=== PATIENT | female | born 1970 | race Two or more races ===

== ENCOUNTER → 2022-10-07 | Outpatient (CLI) | payer MEDICARE, MEDICAID ==
[~2022-10-07] MED LIST: ALBUTEROL SULF 2.5 MG/0.5ML(0.5%) NEB SOLN ONE
== END | disposition home or self-care (01) ==
LOC: EDSTATUS 09:24 → RT 09:25
PROVIDERS: ATTEND Internal Medicine Pulmonary Disease
DX: R06.02 Shortness of breath (principal); J45.40 Moderate persistent asthma, uncomplicated; R06.09 Other forms of dyspnea; Z87.891 Personal history of nicotine dependence
CPT/HCPCS: 94060; 94727; 94729

== ENCOUNTER 2022-11-27 13:29 | Day surgery (SDC) | payer MEDICARE, MEDICAID ==
[2022-11-25 11:40] LABS: Basophils # (auto) 0.1 10 ^3/uL (0-0.2); Basophils % (auto) 0.7 % (0.0-2.0); Eosinophils # (auto) 0.4 10 ^3/uL (0-0.8); Eosinophils % (auto) 4.9 % (0.0-7.0); Hematocrit 38.7 % (36.0-46.0); Hemoglobin 12.6 g/dL (12.2-16.2); Lymphocytes # (auto) 1.3 10 ^3/uL (0.4-5.4); Lymphocytes % (auto) 16.1 % (10.0-50.0); Mean Corpuscular Hemoglobin 31.6 pg (28.0-32.0); Mean Corpuscular Hgb Conc. 32.6 g/dL (32.0-36.0); Mean Corpuscular Volume 96.9 fL (80.0-100.0); Monocytes # (auto) 0.7 10 ^3/uL (0-1.3); Monocytes % (auto) 8.7 % (0.0-12.0); Neutrophils # (auto) 5.8 10 ^3/uL (1.6-8.6); Neutrophils % (auto) 69.6 % (37.0-80.0); Red Cell Distribution Width 13.6 % (11.8-14.3); White Blood Cell 8.4 10^3/uL (4.4-10.8)
[2022-11-25 11:54] LABS: INR 0.99 (0.9-1.15); Partial Thromboplastin Time 30.8 SEC (24.5-34.5)
[2022-11-25 12:33] LABS: BUN/Creatinine Ratio 11.6 (10.0-20.0); Calcium 7.9 mg/dL (8.5-10.1)
[2022-11-25 12:51] LABS: Bilirubin, Total 0.2 mg/dL (0.2-1.0); Total Protein 6.1 g/dL (6.4-8.2)
[~2022-11-27] VITALS: Ht 172.7 cm; Wt 79.4 kg
[~2022-11-27 13:29] MED LIST changes: +ADAL1INJ SC; +ALBUAER3 IN; -ALBUTEROL SULF 2.5 MG/0.5ML(0.5%) NEB SOLN ONE; +AMIT10TA12 PO; +DULO60CA41 PO; +FERR-7 PO; +FLUT100I IN; +FOLI-119 PO; +HYDR-4188 OR; +IPRA0.00 IN; +OMEP20TA PO; +PRE5T PO; +PREG150C PO
[2022-11-27] MEDS ORDERED: PROPOFOL 10 MG/ML 20 ML IV ONE ×2 (15:07→15:23)
[2022-11-27] MEDS ORDERED: LIDOCAINE 2% (LOCAL ANESTH.) PF 5ml SDV ONE (15:07)
[2022-11-27 16:05] VITALS: BP 118/68
== END 2022-11-27 16:16 | disposition home or self-care (01) ==
LOC: GI 13:29
PROVIDERS: ATTEND Internal Medicine Gastroenterology
DX: K63.3 Ulcer of intestine (principal); K57.30 Diverticulosis of large intestine without perforation or abscess without bleeding; K64.1 Second degree hemorrhoids; K52.9 Noninfective gastroenteritis and colitis, unspecified; Z98.84 Bariatric surgery status; Z98.890 Other specified postprocedural states
CPT/HCPCS: 36415; 45378; 80053; 84702; 85025; 85610; 85730; J2001; J2704; J7030

== ENCOUNTER → 2023-03-26 | Day surgery (SDC) | payer MEDICARE, MEDICAID ==
[2023-03-23 09:01] LABS: Basophils # (auto) 0.1 10 ^3/uL (0-0.2); Basophils % (auto) 0.9 % (0.0-2.0); Eosinophils # (auto) 0.7 10 ^3/uL (0-0.8); Eosinophils % (auto) 7.4 % (0.0-7.0); Hematocrit 42.4 % (36.0-46.0); Lymphocytes # (auto) 2.3 10 ^3/uL (0.4-5.4); Lymphocytes % (auto) 23.5 % (10.0-50.0); Monocytes # (auto) 0.7 10 ^3/uL (0-1.3); Neutrophils % (auto) 61.2 % (37.0-80.0); Red Blood Cells 4.38 10^6/uL (4.0-5.20); Red Cell Distribution Width 13.6 % (11.8-14.3); White Blood Cell 9.8 10^3/uL (4.4-10.8)
[2023-03-23 09:18] LABS: Prothrombin Time 10.5 sec (9.3-11.8)
[2023-03-23 09:56] LABS: Alanine Aminotransferase 20 U/L (7-40); Albumin 4.4 g/dL (3.2-4.8); Alkaline Phosphatase 111 U/L (46-116); Anion Gap 6 (5-15); Aspartate Aminotransferase 24 U/L (13-40); BUN/Creatinine Ratio 15.5 (10.0-20.0); Blood Urea Nitrogen 11 mg/dL (9-23); Calcium 9.4 mg/dL (8.5-10.1); Carbon Dioxide 31 mmol/L (20-30); Chloride 104 mmol/L (98-107); Glucose 92 mg/dL (74-106); Potassium 4.4 mmol/L (3.5-5.1); Sodium 141 mmol/L (136-145)
[2023-03-23 09:57] LABS: Bilirubin, Total 0.6 mg/dL (0.2-1.0); Total Protein 7.2 g/dL (5.7-8.2)
[~2023-03-26] VITALS: Ht 172.7 cm; Wt 80.3 kg
[~2023-03-26] MED LIST changes: +LIDOCAINE VISCOUS 2% 15ML UD ONE; +SIMETHICONE 40 MG/0.6 ML ORAL DROP ONE; +SODIUM CHLORIDE LOCK 10 ML ONE; +diphenhdrAMINE HCL 50 MG/1 ML VL ONE
[2023-03-26 15:01] VITALS: PULSE 87; RESP 14; O2SAT 97
[2023-03-26] MEDS: MIDAZOLAM HCL 5 MG/ML-1ML VIAL ONE ×2 (15:06→15:09)
[2023-03-26] MEDS: fentaNYL CITRATE 100 MCG/2 ML VL ONE ×2 (15:06→15:09)
[2023-03-26 15:23] VITALS: RESP 16; TEMP 97.8; O2SAT 94
[2023-03-26 15:48] VITALS: BP 111/62; PULSE 63; RESP 15; O2SAT 95
== END | disposition home or self-care (01) ==
LOC: GI 13:43
PROVIDERS: ATTEND Internal Medicine Gastroenterology
DX: K21.9 Gastro-esophageal reflux disease without esophagitis (principal); K25.9 Gastric ulcer, unspecified as acute or chronic, without hemorrhage or perforation; K29.50 Unspecified chronic gastritis without bleeding; K22.89 Other specified disease of esophagus
CPT/HCPCS: 36415; 43239; 80053; 85025; 85610; 85730; J1200; J2250; J3010; J7030

== ENCOUNTER 2023-09-03 05:48 | Day surgery (SDC) | payer MEDICARE, MEDICAID ==
[2023-08-31 14:41] LABS: Urine Bacteria None Seen /hpf (None Seen)
[2023-08-31 14:50] LABS: Basophils # (auto) 0 10 ^3/uL (0-0.2); Basophils % (auto) 0.6 % (0.0-2.0); Eosinophils # (auto) 0.3 10 ^3/uL (0-0.8); Eosinophils % (auto) 3.4 % (0.0-7.0); Hematocrit 44.2 % (36.0-46.0); Hemoglobin 14.5 g/dL (12.2-16.2); Lymphocytes # (auto) 1.2 10 ^3/uL (0.4-5.4); Lymphocytes % (auto) 16.5 % (10.0-50.0); Mean Corpuscular Hemoglobin 31.6 pg (28.0-32.0); Mean Corpuscular Hgb Conc. 32.9 g/dL (32.0-36.0); Mean Corpuscular Volume 96.3 fL (80.0-100.0); Monocytes # (auto) 0.7 10 ^3/uL (0-1.3); Neutrophils # (auto) 5.2 10 ^3/uL (1.6-8.6); Neutrophils % (auto) 70.5 % (37.0-80.0); Red Blood Cells 4.59 10^6/uL (4.0-5.20); Red Cell Distribution Width 13.5 % (11.8-14.3); White Blood Cell 7.3 10^3/uL (4.4-10.8)
[2023-08-31 14:57] LABS: INR 1.02 (0.9-1.15); Partial Thromboplastin Time 32.8 SEC (24.5-34.5); Prothrombin Time 10.7 sec (9.3-11.8)
[2023-08-31 15:04] LABS: Urine Blood 1+ /uL (Negative); Urine Budding Yeast OCCASIONAL /hpf (None Seen); Urine Clarity Clear (Clear); Urine Color Yellow (Yellow); Urine Mucus FEW (None Seen); Urine Protein, UAD TRACE (Negative); Urine Specific Gravity 1.016 (1.001-1.035); Urine Urobilinogen Normal (Negative); Urine WBC 2 /hpf (0 - 5)
[2023-08-31 15:35] LABS: Alanine Aminotransferase 19 U/L (7-40); Alkaline Phosphatase 90 U/L (46-116); Calcium 9.2 mg/dL (8.5-10.1); Carbon Dioxide 33 mmol/L (20-30); Chloride 106 mmol/L (98-107)
[2023-08-31 15:36] LABS: Albumin 4.2 g/dL (3.2-4.8); Anion Gap 4 (5-15); Aspartate Aminotransferase 28 U/L (13-40); BUN/Creatinine Ratio 7.1 (10.0-20.0); Bilirubin, Total 0.3 mg/dL (0.2-1.0); Blood Urea Nitrogen 6 mg/dL (9-23); Glucose 138 mg/dL (74-106); Potassium 3.9 mmol/L (3.5-5.1); Sodium 143 mmol/L (136-145); Total Protein 6.6 g/dL (5.7-8.2)
[~2023-09-03] VITALS: Ht 172.7 cm; Wt 86.2 kg
[~2023-09-03 05:48] MED LIST changes: -ADAL1INJ SC; -HYDR-4188 OR; +HYDR-4491 OR; -LIDOCAINE VISCOUS 2% 15ML UD ONE; -SIMETHICONE 40 MG/0.6 ML ORAL DROP ONE; -SODIUM CHLORIDE LOCK 10 ML ONE; -diphenhdrAMINE HCL 50 MG/1 ML VL ONE
[2023-09-03] MEDS ORDERED: fentaNYL CITRATE 100 MCG/2 ML VL ONE (07:18)
[2023-09-03] MEDS ORDERED: MIDAZOLAM HCL 2MG/2ML 2ml VIAL (1mg/ml) ONE (07:19)
[2023-09-03] MEDS ORDERED: MEPERIDINE HCL (50 MG/ML) 1 ML VIAL ONE (07:19)
[2023-09-03] MEDS ORDERED: DexAMETHasone SOD PHOS 10MG/1ML VIAL INJ ONE (07:22)
[2023-09-03] MEDS ORDERED: PROPOFOL 10 MG/ML 20 ML IV ONE (07:22)
[2023-09-03] MEDS ORDERED: ceFAZolin 2 GM/D5W50ml 0 ML IV ONE (07:28)
[2023-09-03] MEDS ORDERED: CLINDAMYCIN 600MG IV 50 ML IV ONE (07:29)
[2023-09-03] MEDS ORDERED: LIDOCAINE 2% JELLY 11ml (GLYDO) ONE (07:44)
[2023-09-03] MEDS: LIDOCAINE 1% HCL (LOCAL ANESTH.) INJ 20ML MDV ONE (07:54)
[2023-09-03] MEDS: BUPIVACAINE 0.5% P/F INJ 10 ML VIAL ONE (07:54)
[2023-09-03] MEDS ORDERED: MORPHINE SULFATE 4 MG/ML SYR/VIAL IV PRN (08:15)
[2023-09-03] MEDS ORDERED: ePHEDrine SULFATE 50 MG/ML AMP IV PRN (08:15)
[2023-09-03] MEDS ORDERED: ONDANSETRON HCL 4 MG/2 ML VIAL IV ONE (08:15)
[2023-09-03] MEDS ORDERED: HYDROmorphone HCL 2 MG/ML VL/or syr IV PRN (08:15)
[2023-09-03] MEDS ORDERED: MIDAZOLAM HCL 2MG/2ML 2ml VIAL (1mg/ml) IV PRN (08:15)
[2023-09-03] MEDS ORDERED: LABETALOL HCL 5 MG/ML 4ML SYRINGE IV PRN (08:15)
[2023-09-03] MEDS ORDERED: HYDR-4902 PO (08:33)
[2023-09-03] MEDS ORDERED: CLIN1CAP70 PO (08:33)
[2023-09-03 08:38] VITALS: TEMP 98.1; O2SAT 100
[2023-09-03 09:35] VITALS: BP 115/66; PULSE 61; RESP 14; O2SAT 97
== END 2023-09-03 09:40 | disposition home or self-care (01) ==
LOC: SUR 05:48
PROVIDERS: ATTEND Student in an Organized Health Care Education/Training Program
DX: M20.42 Other hammer toe(s) (acquired), left foot (principal); M77.42 Metatarsalgia, left foot; G62.9 Polyneuropathy, unspecified; J45.909 Unspecified asthma, uncomplicated; I10 Essential (primary) hypertension; F41.9 Anxiety disorder, unspecified; F32.9 Major depressive disorder, single episode, unspecified; K21.9 Gastro-esophageal reflux disease without esophagitis; E66.01 Morbid (severe) obesity due to excess calories; Z88.2 Allergy status to sulfonamides; Z88.0 Allergy status to penicillin; Z88.8 Allergy status to other drugs, medicaments and biological substances; Z96.653 Presence of artificial knee joint, bilateral; Z86.19 Personal history of other infectious and parasitic diseases; Z98.890 Other specified postprocedural states; Z79.899 Other long term (current) drug therapy; Z98.84 Bariatric surgery status; Z68.30 Body mass index [BMI] 30.0-30.9, adult; Z79.01 Long term (current) use of anticoagulants
CPT/HCPCS: 28285; 28308; 36415; 73620; 80053; 81001; 85025; 85610; 85730; J1100; J2001; J2175; J2250; J2704; J3010; J3490; 76000

== ENCOUNTER 2024-10-30 09:56 | Inpatient (IN) | payer MEDICARE, MEDICAID ==
[2024-10-27 06:49] LABS: Urine Bacteria FEW /hpf (None Seen); Urine Blood 2+ /uL (Negative); Urine Clarity Clear (Clear); Urine Color Colorless (Yellow); Urine Protein, UAD Negative (Negative); Urine Specific Gravity 1.003 (1.001-1.035); Urine Squamous Epithelial Cell FEW /hpf (<5); Urine Urobilinogen Normal (Negative); Urine WBC 1 /HPF (0-5)
[2024-10-27 06:51] LABS: Basophils # (auto) 0 10 ^3/uL (0-0.2); Basophils % (auto) 0.6 % (0.0-2.0); Eosinophils # (auto) 0.7 10 ^3/uL (0-0.8); Eosinophils % (auto) 8.8 % (0.0-7.0); Hematocrit 38.6 % (36.0-46.0); Hemoglobin 12.9 g/dL (12.2-16.2); Lymphocytes % (auto) 25.6 % (10.0-50.0); Mean Corpuscular Hemoglobin 31.1 pg (28.0-32.0); Mean Corpuscular Hgb Conc. 33.5 g/dL (32.0-36.0); Mean Corpuscular Volume 92.9 fL (80.0-100.0); Monocytes # (auto) 0.7 10 ^3/uL (0-1.3); Monocytes % (auto) 8.8 % (0.0-12.0); Neutrophils # (auto) 4.5 10 ^3/uL (1.6-8.6); Neutrophils % (auto) 56.2 % (37.0-80.0); Nucleated Red Blood Cells % 0.1 %; Platelet Count (auto) 179 10^3/uL (140-450); Red Blood Cells 4.16 10^6/uL (4.0-5.20)
[2024-10-27 07:05] LABS: INR 0.95 (0.9-1.15); Partial Thromboplastin Time 29.3 SEC (24.5-34.5); Prothrombin Time 10.1 sec (9.3-11.8)
[2024-10-27 07:36] LABS: Alanine Aminotransferase 16 U/L (7-40); Alkaline Phosphatase 104 U/L (46-116); Anion Gap 5 (5-15); Aspartate Aminotransferase 20 U/L (13-40); BUN/Creatinine Ratio 12.5 (10.0-20.0); Bilirubin, Total 0.4 mg/dL (0.2-1.0); Calcium 9.5 mg/dL (8.7-10.4); Glucose 74 mg/dL (74-106); Potassium 3.7 mmol/L (3.5-5.1); Sodium 145 mmol/L (136-145); Total Protein 6.4 g/dL (5.7-8.2)
[2024-10-27 07:38] LABS: Blood Urea Nitrogen 9 mg/dL (9-23); Carbon Dioxide 32 mmol/L (20-31); Chloride 108 mmol/L (98-107)
[~2024-10-30] VITALS: Ht 172.7 cm; Wt 71.2 kg
[~2024-10-30 09:56] MED LIST changes: +HYDR-4902 PO
[2024-10-30] MEDS ORDERED: GLYCOPYRROLATE 0.2 MG/ML 1ML VIAL ONE (10:35)
[2024-10-30] MEDS ORDERED: KETOROLAC TROMETH 30 MG/ML 1ML VIAL ONE ×2 (10:35→11:37)
[2024-10-30] MEDS ORDERED: PROPOFOL 10 MG/ML 20 ML IV ONE ×3 (10:35→14:05)
[2024-10-30] MEDS ORDERED: DexAMETHasone SOD PHOS 10MG/1ML VIAL INJ ONE (10:35)
[2024-10-30] MEDS ORDERED: ONDANSETRON HCL 4 MG/2 ML VIAL ONE (10:35)
[2024-10-30] MEDS ORDERED: LIDOCAINE 1% INJ PF 5ML AMP ONE (10:35)
[2024-10-30] MEDS ORDERED: ACETAMINOPHEN IV 100 ML IV ONE (10:46)
[2024-10-30] MEDS ORDERED: ceFAZolin 2 GM/D5W50ml 50 ML IV ONE (10:46)
[2024-10-30] MEDS ORDERED: CELECOXIB 100 MG CAP ONE (11:02)
[2024-10-30] MEDS ORDERED: PREGABALIN CAPSULE 75 MG CAP ONE (11:03)
[2024-10-30] MEDS ORDERED: TRANEXAMIC ACID 20 ML ONE (11:36)
[2024-10-30] MEDS ORDERED: BUPIVACAINE HCL 50 ML ONE (11:36)
[2024-10-30] MEDS ORDERED: VANCOMYCIN HCL 1000 MG VL ONE (11:37)
[2024-10-30] MEDS ORDERED: ALBUTEROL SULF HFA 90MCG INH 200DOSE IN SCH (11:45)
[2024-10-30] MEDS ORDERED: ceFAZolin 1GM/50ML 50 ML IV SCH (11:45)
[2024-10-30] MEDS ORDERED: ONDANSETRON HCL 4 MG/2 ML VIAL IV PRN ×2 (11:45→14:45)
[2024-10-30] MEDS ORDERED: NITROGLYCERIN 0.4 MG SL TAB SL PRN (11:45)
[2024-10-30] MEDS ORDERED: HYDROmorphone HCL 2 MG/ML VL/or syr IV PRN ×3 (11:45→15:45)
[2024-10-30] MEDS ORDERED: MORPHINE SULFATE INJ 2 MG/ml SYRG IV PRN (11:45)
[2024-10-30] MEDS: CELECOXIB 100 MG CAP PO ONE (12:15)
[2024-10-30] MEDS: ACETAMINOPHEN IV 1000 MG/100ML (10MG/ML) IV ONE (12:15)
[2024-10-30] MEDS: PREGABALIN CAPSULE 75 MG CAP PO ONE (12:15)
[2024-10-30] MEDS ORDERED: ePHEDrine SULFATE 50 MG/ML AMP ONE (12:59)
[2024-10-30] MEDS ORDERED: MORPHINE SULF PF 5 MG/10 ML VIAL ONE (13:06)
[2024-10-30 14:32] VITALS: PULSE 75; RESP 24; O2SAT 100
[2024-10-30] MEDS ORDERED: hydrALAZINE HCL 20 MG/ML VL IV PRN (14:45)
[2024-10-30] MEDS ORDERED: NALOXONE HCL 0.4 MG/ML VIAL IV PRN (14:45)
[2024-10-30] MEDS ORDERED: FLUMAZENIL 0.1 MG/ML INJ 10ML MDV IV PRN (14:45)
[2024-10-30] MEDS ORDERED: ePHEDrine SULFATE 50 MG/ML AMP IV PRN (14:45)
[2024-10-30] MEDS ORDERED: oxyCODONE HCL 5MG TAB PO PRN (14:45)
[2024-10-30] MEDS ORDERED: fentaNYL CITRATE 100 MCG/2 ML VL IV PRN (14:45)
--- NOTE | 2024-10-30 15:25 | DVHOP2 ---
Operative Report - 2 Report Details Date: 10/30/24 Preop Diagnosis: R hip osteoarthritis Postop Diagnosis: Same Surgeon: Coleman Diaz MD [employer] Wel[employer] Operator: Thierno Hernández Anesthesiologist: ALTAF Sesay Anesthesia: Regional Implant: Yoel Consent: The patient was informed of the risks and benefits of the procedure. These include but are not limited to complications of anesthesia, postoperative infection, incomplete relief of symptoms, recurrence of symptoms, damage to blood vessels, nerves and tendons, deep venous thrombosis, pulmonary embolism and possible need for repeat surgery in the future. Estimated Blood Loss: 250ml Name of Procedure Performed Right Total Hip Arthroplasty Procedure Details Procedure Details: The patient was brought to the operating room and placed in the lateral decubitus position. After adequate induction of anesthesia, the right hip was prepped and draped in the usual sterile fashion. A minimally invasive posterior approach was utilized. A skin incision was made over the posterior aspect of the right hip. Dissection was carried down through the subcutaneous tissue, and the fascia marie was incised in line with the skin incision. The short external rotators were identified, tagged, and released to expose the hip joint capsule. The hip capsule was incised, and the hip was dislocated posteriorly. The femoral head was resected using a power saw. Attention was then turned to the acetabulum, which was reamed sequentially to accommodate a size 52 Yoel [employer] G7 dual mobility cup. The cup was impacted into place with appropriate version and inclination, and screws were used for additional fixation as needed. Attention was then turned to the femur. The femoral canal was prepared with sequential broaching, and a size 12.5 standard stem was selected and impacted into the femoral canal. A +3.5 head was placed onto the stem. The hip was reduced, and stability was assessed through a full range of motion. Excellent stability was confirmed with no impingement or dislocation. The wound was irrigated with copious amounts of normal saline. The short external rotators and capsule were repaired. The fascia marie was closed with interrupted sutures. The subcutaneous tissue was closed with absorbable sutures, and the skin was closed with maggy. A sterile dressing was applied, and the patient was transferred to the recovery room in stable condition. Condition Stable Disposition Home with Health Services COLEMAN DIAZ DO Oct 30, 2024 15:25
[2024-10-30] MEDS ORDERED: MORPHINE SULFATE 4 MG/ML SYR/VIAL IV PRN (15:30)
[2024-10-30] MEDS ORDERED: PANTOPRAZOLE 40 MG/10 ML VIAL INJ IV ONE (15:38)
--- NOTE | 2024-10-30 15:55 | DVH ---
Indication: sp Right ANATOLY Technique: Single-view pelvis Comparison: None FINDINGS/IMPRESSION: Total right hip arthroplasty in anatomic alignment with postop changes including surrounding soft tis migue emphysema, edema. Mild degenerate changes left hip.
[2024-10-30] MEDS: PANTOPRAZOLE 40 MG TAB PO SCH (15:56)
[2024-10-30 17:00] VITALS: BP 110/65; PULSE 92; RESP 18; TEMP 98.3; O2SAT 97
[2024-10-30 17:27] VITALS: PULSE 92; RESP 18; O2SAT 97
[2024-10-30] MEDS: SODIUM CHLOR 0.9% PF (SALINE LOCK) 10ML VIAL/SYR IV SCH (17:40)
[2024-10-30] MEDS: LACTATED RINGER'S 1,000 ML IV SCH (17:40)
[2024-10-30 20:07] VITALS: BP 110/65; PULSE 83; RESP 18; O2SAT 93
[2024-10-30] MEDS ORDERED: ALBUTEROL SULF 2.5 MG/0.5ML(0.5%) NEB SOLN NEB PRN (20:15)
[2024-10-30 21:00] VITALS: BP 97/69; PULSE 74; RESP 18; TEMP 98.4; O2SAT 94
[2024-10-30] MEDS: DOCUSATE SOD 100 MG CAP PO SCH (21:44)
[2024-10-30] MEDS: DULoxetine HCL 30 MG CAP PO SCH (21:44)
[2024-10-30] MEDS: AMITRIPTYLINE HCL 10 MG TAB PO SCH (21:45)
[2024-10-30] MEDS: PREGABALIN CAPSULE 75 MG CAP PO SCH (21:45)
[2024-10-30] MEDS: oxyCODONE ER 10 MG TAB PO SCH (21:47)
[2024-10-30] MEDS ORDERED: PATIENTS OWN MEDICATION (Duloxetine Hcl (Cymbalta) 60 MG) PO SCH (22:00)
[2024-10-30] MEDS ORDERED: PREGABALIN 150 MG PO SCH (22:00)
[2024-10-31] VITALS (9 sets, daily range): BP systolic 97–118; BP diastolic 58–73; PULSE 68–84; RESP 16–18; TEMP 96.8–98.7; O2SAT 94–100
[2024-10-31] MEDS: OXYCODONE W/ ACETAMINOPHEN 5/325MG TABLET PO PRN (02:45)
[2024-10-31 06:44] LABS: Hematocrit 36.5 % (36.0-46.0); Hemoglobin 12.2 g/dL (12.2-16.2)
[2024-10-31 06:52] LABS: Alanine Aminotransferase 35 U/L (7-40); Alkaline Phosphatase 94 U/L (46-116); Anion Gap 9 (5-15); BUN/Creatinine Ratio 14.3 (10.0-20.0); Calcium 9.2 mg/dL (8.7-10.4); Carbon Dioxide 28 mmol/L (20-31); Chloride 105 mmol/L (98-107); Glucose 101 mg/dL (74-106); Potassium 4.5 mmol/L (3.5-5.1); Sodium 142 mmol/L (136-145); Total Protein 6.1 g/dL (5.7-8.2)
[2024-10-31 06:53] LABS: Albumin 3.7 g/dL (3.2-4.8); Bilirubin, Total 0.4 mg/dL (0.2-1.0)
[2024-10-31 07:02] LABS: Blood Urea Nitrogen 9 mg/dL (9-23)
[2024-10-31 07:31] LABS: Aspartate Aminotransferase 45 U/L (13-40)
--- NOTE | 2024-10-31 08:09 | DVHPN2 ---
Progress Note Date Seen: Oct 31, 2024 Medical Necessity Reason Pt with a Central, PICC or Fol: No Subjective Patient reports: No new complaints Objective vital signs Vital Sign Date Time Temp Pulse Resp B/P (MAP) Pulse Ox O2 Delivery O2 Flow Rate FiO2 10/31/24 06:26 97 Room Air 0.0 10/31/24 06:26 21 10/31/24 05:00 98.0 74 18 109/73 (85) 98.0 Total Intake and Output 10/30/24 10/30/24 10/31/24 15:00 23:00 07:00 Intake Total 100 ml 900 ml Output Total 1000 ml Balance 100 ml -100 ml medications Current Medications Medications Dose Ordered Sig/Libertad Route Start Time Stop Time Status Last Admin Dose Admin Amitriptyline HCl 10 mg HS PO 10/30/24 22:00 10/30/24 21:45 10 MG Patient Own Medication 60 mg BID PO 10/30/24 22:00 Cancel Patient Own Medication 325 mg DAILY PO 10/31/24 10:00 UNV Patient Own Medication 1 mg DAILY PO 10/31/24 10:00 UNV Patient Own Medication 20 mg DAILY PO 10/31/24 10:00 UNV Patient Own Medication 150 mg BID PO 10/30/24 22:00 UNV Cefepime HCl 50 ml @ 12.5 mls/hr DAILY IV 10/31/24 10:00 Future Hold Lactated Ringer's 1,000 ml @ 100 mls/hr Q10H IV 10/30/24 11:45 Sodium Chloride 10 ml Q8HR IV 10/30/24 14:00 10/31/24 05:33 10 ML Cefazolin Sodium 50 ml @ 50 mls/hr Q6H IV 10/30/24 11:45 10/31/24 00:44 Cancel Oxycodone/ Acetaminophen 1 tab Q4HP PRN PO 10/30/24 11:45 10/31/24 02:45 1 TAB Oxycodone HCl 10 mg Q12HR PO 10/30/24 22:00 10/30/24 21:47 10 MG Ondansetron HCl 4 mg Q6HP PRN IV 10/30/24 11:45 Docusate Sodium 100 mg Q12HR PO 10/30/24 22:00 10/30/24 21:44 100 MG Enoxaparin Sodium 40 mg DAILY SC 10/31/24 10:00 Nitroglycerin 0.4 mg Q5MINP PRN SL 10/30/24 11:45 Morphine Sulfate 2 mg Q30M PRN IV 10/30/24 11:45 UNV Oxycodone HCl 10 mg ONCE PRN PO 10/30/24 14:45 Duloxetine HCl 60 mg BID PO 10/30/24 22:00 10/30/24 21:44 60 MG Pregabalin 150 mg BID PO 10/30/24 22:00 10/30/24 21:45 150 MG Ferrous Sulfate 325 mg DAILY PO 10/31/24 10:00 Folic Acid 1 mg DAILY PO 10/31/24 10:00 Pantoprazole Sodium 40 mg DAILY PO 10/31/24 10:00 10/30/24 15:56 40 MG Morphine Sulfate 2 mg Q30M PRN IV 10/30/24 15:30 Hydromorphone HCl 1 mg Q2HP PRN IV 10/30/24 15:45 Albuterol 2.5 mg Q4HPRN PRN NEB 10/30/24 20:15 Examination: GENERAL:Normal, MSK:Abnormal laboratory and microbiology Laboratory Tests 10/31/24 05:04 10/27/24 06:34 Test 10/31/24 05:04 Range/Units Serum Glucose 101 74-106 mg/dL Problem List/Assessment/Plan Problem List/Assessment/Plan 54 year old female who is s/p right ANATOLY POD 1 1. WBAT with walker 2. Physical therapy 3. posterior hip precautions discussed 4. DVT ppx 5. pain control 6. d/c greenberg cath today Plan discussed with: Patient Date of Service: Oct 31, 2024 Billing Provider: FELISHA PONCE MD Common Visit Codes: NOT BILLABLE LUIZ HERNANDEZ NP Oct 31, 2024 08:09
[2024-10-31] MEDS: FOLIC ACID 1 MG TAB PO SCH (08:25)
[2024-10-31] MEDS: FERROUS SULFATE 325mg EC TAB PO SCH (08:26)
[2024-10-31] MEDS: ENOXAPARIN SOD 40 MG/0.4 ML SYRINGE SC SCH (08:32)
--- NOTE | 2024-10-31 09:06 | ECG ---
[facility] Test Date: 2024-10-30 Test Time: 15:20:42 Pat Name: DARCI BURR Department: Room: 0212 B Gender: F Frontload Driver: FARHANA : 1970 Requested By: CATY BUSCH Order Number: [id number] Reading MD: Taran Herrera Measurements Intervals [place] Rate: 63 P: 39 WI: 164 QRS: 26 QRSD: 84 T: 55 QT: 422 QTc: 431 Interpretive Statements Normal sinus rhythm Cannot rule out Anterior infarct , age undetermined Electronically Signed On 11-01-2024 20:21:25 PDT by Taran Herrera Please click the below link to view image of tracing.
[2024-10-31] MEDS ORDERED: PATIENTS OWN MEDICATION (Ferrous Sulfate (Iron) 325 MG) PO SCH (10:00)
[2024-10-31] MEDS ORDERED: PATIENTS OWN MEDICATION (Omeprazole (Gnp Omeprazole) 20 MG) PO SCH (10:00)
[2024-10-31] MEDS ORDERED: CEFEPIME 1GM/ 50ML 50 ML IV SCH (10:00)
[2024-10-31] MEDS ORDERED: PATIENTS OWN MEDICATION (Folic Acid 1 MG) PO SCH (10:00)
[2024-11-01] VITALS (7 sets, daily range): BP systolic 102–123; BP diastolic 64–74; PULSE 74–93; RESP 18–20; TEMP 97.5–99.4; O2SAT 95–99
[2024-11-01 07:34] LABS: Hematocrit 35.4 % (36.0-46.0); Hemoglobin 11.9 g/dL (12.2-16.2)
--- NOTE | 2024-11-01 08:03 | DVHDS2 ---
Discharge Summary Date of Admission Oct 30, 2024 at 11:32 Date of Discharge: Nov 01, 2024 Wounds: If the wound is draining please change the gauze pad on the wound until it stops. If drainage persists past 10 days please notify our office. If there is a sticky gel dressing over your wound, you may leave this in place for as long as it is clean and dry. If it becomes loose or causes skin irritation, it is OK to remove it and place clean gauze over your wound. 1. You might notice some bruising around the surgical site, this is normal. 2. Check your temperature on a daily basis. Please note that a low-grade temp below 101 is not uncommon after surgery especially during the first 3 days. Notify the office if your temperature spikes above 101.5 after the 3rd post- operative date. 3. Many patients experience significant swelling in the thigh, this may extend below the knee and sometimes to the ankle. Swelling increases during the first week and subsides during the following week. 4. Provided you have been on a blood thinner since surgery and have been up and about at least three times per day, the risk of a blood clot is low and this swelling is an expected part of recovery. It will largely or completely resolve by your first post-operative visit. 5. [place], if present, will be removed at 2 weeks during initial post-op visit. Labs/Diagnostic Data: Laboratory Results Test 11/01/24 05:44 10/31/24 05:04 10/27/24 06:34 Hemoglobin 11.9 g/dL (12.2-16.2) Hematocrit 35.4 % (36.0-46.0) Sodium Level 142 mmol/L (136-145) Potassium Level 4.5 mmol/L (3.5-5.1) Chloride Level 105 mmol/L (98-107) Carbon Dioxide Level 28 mmol/L (20-31) Anion Gap 9 (5-15) Blood Urea Nitrogen 9 mg/dL (9-23) Creatinine 0.63 mg/dL (0.550-1.02) Glomerular Filtration Rate Calc 107 mL/min (>90) BUN/Creatinine Ratio 14.3 (10.0-20.0) Serum Glucose 101 mg/dL (74-106) Calcium Level 9.2 mg/dL (8.7-10.4) Total Bilirubin 0.4 mg/dL (0.2-1.0) Aspartate Amino Transferase (AST) 45 U/L (13-40) Alanine Aminotransferase (ALT) 35 U/L (7-40) Alkaline Phosphatase 94 U/L (46-116) Total Protein 6.1 g/dL (5.7-8.2) Albumin 3.7 g/dL (3.2-4.8) White Blood Count 8.0 10^3/uL (4.4-10.8) Red Blood Count 4.16 10^6/uL (4.0-5.20) Mean Corpuscular Volume 92.9 fL (80.0-100.0) Mean Corpuscular Hemoglobin 31.1 pg (28.0-32.0) Mean Corpuscular Hemoglobin Concent 33.5 g/dL (32.0-36.0) Red Cell Distribution Width 14.0 % (11.8-14.3) Platelet Count 179 10^3/uL (140-450) Mean Platelet Volume 9.5 fL (6.9-10.8) Neutrophils (%) (Auto) 56.2 % (37.0-80.0) Lymphocytes (%) (Auto) 25.6 % (10.0-50.0) Monocytes (%) (Auto) 8.8 % (0.0-12.0) Eosinophils (%) (Auto) 8.8 % (0.0-7.0) Basophils (%) (Auto) 0.6 % (0.0-2.0) Neutrophils # (Auto) 4.5 10 ^3/uL (1.6-8.6) Lymphocytes # (Auto) 2.0 10 ^3/uL (0.4-5.4) Monocytes # (Auto) 0.7 10 ^3/uL (0-1.3) Eosinophils # (Auto) 0.7 10 ^3/uL (0-0.8) Basophils # (Auto) 0 10 ^3/uL (0-0.2) Nucleated Red Blood Cells 0.1 % Prothrombin Time 10.1 sec (9.3-11.8) Prothrombin Time INR 0.95 (0.9-1.15) Activated Partial Thromboplast Time 29.3 SEC (24.5-34.5) Urine Color Colorless (Yellow) Urine Clarity Clear (Clear) Urine pH 5.0 (5.0-9.0) Urine Specific [place] 1.003 (1.001-1.035) Urine Protein Negative (Negative) Urine Ketones Negative (Negative) Urine Blood 2+ /uL (Negative) Urine Nitrite Negative (Negative) Urine Bilirubin Negative (Negative) Urine Urobilinogen Normal mg/dL (Negative) Urine Leukocyte Esterase Negative /uL (Negative) Urine RBC <1 /hpf (0 - 4) Urine Microscopic WBC 1 /HPF (0-5) Urine Squamous Epithelial Cells Few /hpf (<5) Urine Bacteria Few /hpf (None Seen) Urine Glucose Normal mg/dL (Normal) Other Laboratory Tests 11/01/24 05:44 10/31/24 05:04 10/27/24 06:34 Brief Hx & Hospital Course: s/p right ANATOLY Condition at Discharge: Good Final Diagnosis/Problems List Same Discharge Disposition: Home with Health Services Discharge Instruct/Medications Diet: Regular Diet comment: may advance diet as tolerated, drink plenty of fluids. Activity: See Comment Activity comment: 1.You can bear as much weight as you tolerate on your hip unless specifically instructed otherwise. You may use the walking aid which you were discharged with and switch to a cane whenever you feel comfortable doing so. You should use an assistive device until you can walk comfortably without it. Keep in mind that every patient moves at their own speed of recovery so take your time. 2.A physical therapist will visit you at home. 3. Although guarantees against a dislocation do not exist, the hip was noted to be sufficiently stable in surgery. Below are motions that you should dischargenot do for 4-6 weeks, depending on the surgical approach used. If there are questions, please call the office. a.Bend forward past 90 degrees b.Sit on a regular low chair, couch, car seat etc... c.Cross your legs d.Use a regular low toilet seat. e.Sleep on your stomach or on either side. 3.High impact activity such as jumping, aerobics, tennis, and skiing are not permitted during the first 3 months after surgery. These activities can contribute to accelerated wear and should be done with caution after this time. Discuss this with your surgeon if you have questions. 4.Although a bath or whirlpool is NOT permitted during the first 2-3 weeks, you may shower as soon as you get home from the hospital provided you are able to keep your bandage clean and dry and there is no wound drainage. If you are unable to place a secured covering over your bandage bed bath/sponge bath may likely be the more appropriate option. 5.Swimming is not permitted until the wound is healed, which typically occurs approximately 3-4 weeks after surgery. Follow Up/Referral: 1.Driving is not permitted within the first 2 weeks. 2.Your first postoperative visit will take place 2weeks after discharge. Please call the office to arrange this appointment. 3.Antibiotic preventative treatment is required before dental or other invasive procedures. Please ask your surgeon about this at your first postoperative visit. Your hip replacement contains metal which may activate metal detectors. You may wish to carry a letter from your surgeon to communicate this to security personnel. If you experience chest pain, shortness of breath or severe painful calf swelling, go to the nearest emergency room to be evaluated. Please call our office once your situation is stabilized. Medications: 1.You will be discharged with pain medication, Aspirin as a blood thinner and sometimes an anti-inflammatory medication such as Celebrex or Mobic might be prescribed. Please follow the instructions regarding these medicines as provided by your nurse at the hospital. 2.Narcotic pain medication has side effects, including constipation. Please ensure you continue to take stool softeners (Colace, Senna) while taking your pain medication to help protect against constipation. Getting up and moving around at least a few times per day helps with this also. 3.Lovenox 40 Sq x 12 days followed by one regular strength 325 mg coated aspirin daily for 4 weeks after surgery. Then, take one baby aspirin, 81 mg daily for 6 weeks more. A major, yet preventable, complication of Orthopaedic Surgery is a blood clot (DVT). It is important not to miss any doses of this important medication. 4.You should restart all of your prescription medications once discharged unless specifically instructed otherwise. 5.Herbal supplements may be restarted 2 weeks after surgery. Discharge Statement: "Patient was advised to return to the ER or call 911 if any headaches, dizziness, shortness of breath, chest pain, abdominal pain, bleeding, fevers, or worsening of medical condition. Patient was counseled about treatment plan, medications, possible side effects, patientverbalized understanding. All questions were answered to the best of my ability. This discharge took greater then 30 minutes in planning, reviewing documentation, counseling the patient, and discussing with other team members." ASSESSMENT ASSESSMENT Assessment Same LUIZ HERNANDEZ NP Nov 01, 2024 08:03
[2024-11-01] MEDS ORDERED: CEPH500C PO ×2 (10:05→11:44)
[2024-11-01] MEDS ORDERED: HYDR-4798 PO (10:05)
[2024-11-01] MEDS ORDERED: ASPI81CH59 PO (10:05)
--- NOTE | 2024-11-01 10:48 | DVHINCON2 ---
Date Seen: Nov 01, [address] Diaz Family History: Alzheimer's disease G8 MOTHER Graves' disease G8 MOTHER Allergies: Coded Allergies: Amoxicillin (Unverified Allergy, Mild, hives, 11/25/22) Sulfa Antibiotics (Unverified Allergy, Mild, hives, 11/25/22) Adalimumab (Unverified Adverse Reaction, Unknown, hives, 10/25/24) Home Meds Active Scripts Cephalexin Monohydrate (Cephalexin) 500 Mg Cap, 500 MG PO TID for 5 Days, #15 MG Prov:CHANDLER PETTY 11/01/24 Aspirin (Aspirin Low Dose) 81 Mg Chw, 2 TAB PO DAILY, #60 TAB 3 Refills Prov:CHANDLER PETTY 11/01/24 Hydrocodone-Acetaminophen (Hydrocodone Bitartrate/AC 10-325 mg) 1 Tab Tab, 1 TAB PO Q6HP PRN for 7 Days, #28 TAB Prov:CHANDLER PETTY 11/01/24 Hydrocodone-Acetaminophen (Hydrocodone Bitartrate/AC 5-325 mg) 1 Tab Tab, 1 TAB PO Q8HR for 7 Days, #21 TAB Prov:SHAMIKA NARVAEZ DPM 09/03/23 Reported Medications Prednisone (Prednisone) 5 Mg Tab, 5 MG PO DAILY, TAB 11/25/22 Omeprazole (Gnp Omeprazole) 20 Mg Tab, 20 MG PO DAILY, TAB 11/25/22 Pregabalin (Lyrica) 150 Mg Cap, 150 MG PO BID, CAP 11/25/22 Ipratropium-Albuterol (Ipratropium [place]/Albut) 1 Ana Luisa Ana Luisa, 1 ANA LUISA IN, ML 11/25/22 Hydroxychloroquine Sulfate (PLAQUENIL) 200 Mg Tab, 200 MG OR BID, TAB 11/25/22 Folic Acid (Folic Acid) 1 Mg Tab, 1 MG PO DAILY, TAB 11/25/22 Ferrous Sulfate (Iron) 325 Mg Tab, 325 MG PO DAILY, TAB 11/25/22 Duloxetine Hcl (Cymbalta) 60 Mg Cap, 60 MG PO BID, CAP 11/25/22 Fluticasone Furoate-Vilanterol (BREO ELLIPTA) 1 Inh Inh, 1 INH IN, INHALER 11/25/22 Amitriptyline Hcl (Amitriptyline Hcl) 10 Mg Tab, 10 MG PO HS, TAB 11/25/22 Albuterol Sulfate (VENTOLIN MDI) 90 Mcg Ih, 90 MCG IN PRN, INH 11/25/22 Vital Signs Vital Signs Date Time Temp Pulse Resp B/P (MAP) Pulse Ox O2 Delivery O2 Flow Rate FiO2 11/01/24 09:00 98.8 74 20 107/74 (85) 99 98.8 11/01/24 05:53 Room Air* 0 21 Labs/Diagnostic Data Labs Test 11/01/24 05:44 10/31/24 05:04 10/27/24 06:34 Range/Units Hemoglobin 11.9 L 12.2-16.2 g/dL Hematocrit 35.4 L 36.0-46.0 % Sodium Level 142 136-145 mmol/L Potassium Level 4.5 3.5-5.1 mmol/L Chloride Level 105 98-107 mmol/L Carbon Dioxide Level 28 20-31 mmol/L Anion Gap 9 5-15 Blood Urea Nitrogen 9 9-23 mg/dL Creatinine 0.63 0.550-1.02 mg/dL Glomerular Filtration Rate Calc 107 >90 mL/min BUN/Creatinine Ratio 14.3 10.0-20.0 Serum Glucose 101 74-106 mg/dL Calcium Level 9.2 8.7-10.4 mg/dL Total Bilirubin 0.4 0.2-1.0 mg/dL Aspartate Amino Transferase (AST) 45 H 13-40 U/L Alanine Aminotransferase (ALT) 35 7-40 U/L Alkaline Phosphatase 94 46-116 U/L Total Protein 6.1 5.7-8.2 g/dL Albumin 3.7 3.2-4.8 g/dL White Blood Count 8.0 4.4-10.8 10^3/uL Red Blood Count 4.16 4.0-5.20 10^6/uL Mean Corpuscular Volume 92.9 80.0-100.0 fL Mean Corpuscular Hemoglobin 31.1 28.0-32.0 pg Mean Corpuscular Hemoglobin Concent 33.5 32.0-36.0 g/dL Red Cell Distribution Width 14.0 11.8-14.3 % Platelet Count 179 140-450 10^3/uL Mean Platelet Volume 9.5 6.9-10.8 fL Neutrophils (%) (Auto) 56.2 37.0-80.0 % Lymphocytes (%) (Auto) 25.6 10.0-50.0 % Monocytes (%) (Auto) 8.8 0.0-12.0 % Eosinophils (%) (Auto) 8.8 H 0.0-7.0 % Basophils (%) (Auto) 0.6 0.0-2.0 % Neutrophils # (Auto) 4.5 1.6-8.6 10 ^3/uL Lymphocytes # (Auto) 2.0 0.4-5.4 10 ^3/uL Monocytes # (Auto) 0.7 0-1.3 10 ^3/uL Eosinophils # (Auto) 0.7 0-0.8 10 ^3/uL Basophils # (Auto) 0 0-0.2 10 ^3/uL Nucleated Red Blood Cells 0.1 % Prothrombin Time 10.1 9.3-11.8 sec Prothrombin Time INR 0.95 0.9-1.15 Activated Partial Thromboplast Time 29.3 24.5-34.5 SEC Urine Color Colorless Yellow Urine Clarity Clear Clear Urine pH 5.0 5.0-9.0 Urine Specific [place] 1.003 1.001-1.035 Urine Protein Negative Negative Urine Ketones Negative Negative Urine Blood 2+ H Negative /uL Urine Nitrite Negative Negative Urine Bilirubin Negative Negative Urine Urobilinogen Normal Negative mg/dL Urine Leukocyte Esterase Negative Negative /uL Urine RBC <1 0 - 4 /hpf Urine Microscopic WBC 1 0-5 /HPF Urine Squamous Epithelial Cells Few <5 /hpf Urine Bacteria Few H None Seen /hpf Urine Glucose Normal Normal mg/dL Assessment see dictated note Plan discussed with: Patient Date of Service: Nov 01, 2024 Billing Provider: ROSS COLMENARES MD Common Visit Codes: [id number] INP/OBS CARE (HIGH) Secondary Visit Codes: [id number] CARE PLAN 30 MINUTES ROSS COLMENARES MD Nov 01, 2024 10:48
[2024-11-01] MEDS ORDERED: ASPI1TAB20 PO (11:44)
[2024-11-01] MEDS ORDERED: HYDR-4072 PO (11:44)
[2024-11-01] MEDS: hydrOXYchloroQUINE SULFATE 200 MG TAB PO ONE (12:49)
[2024-11-01] MEDS: predniSONE 5 MG TAB PO ONE (12:49)
[2024-11-01] MEDS ORDERED: OXY10CRT PO (14:53)
--- NOTE | 2024-11-01 15:02 | DVHINCON2 ---
DATE OF CONSULTATION: 11/01/2024 INTERNAL MEDICINE CONSULT HISTORY OF PRESENT ILLNESS: The patient is a 54-year-old lady who was admitted after she underwent surgery on the right hip for DJD of the hip. The patient at this time denies any significant pain. She has been ambulating with physical therapy. No chest pain, no shortness of breath, no nausea or vomiting. REVIEW OF SYSTEMS: Review of rest of systems is otherwise currently negative. PAST MEDICAL HISTORY: Significant for rheumatoid arthritis as well as chronic pain, depression, and neuropathy. MEDICATIONS: She takes Cymbalta, Mackey, Plaquenil, prednisone, Lyrica, and amitriptyline. ALLERGIES: ADALIMUMAB, AMOXICILLIN, AND SULFA. SOCIAL HISTORY: Lives at home with her . Denies smoking or alcohol. FAMILY HISTORY: Negative. PHYSICAL EXAMINATION: GENERAL: The patient is awake and alert. VITAL SIGNS: Temperature of 98.8, pulse 74 per minute, blood pressure 107/74. SHEENT: Unremarkable. NECK: No JVD. No pedal edema. LUNGS: Equal bilaterally. No added sounds. CARDIOVASCULAR: S1 and S2 is regular without murmurs. ABDOMEN: Soft. There is no organomegaly. NEUROLOGIC: Nonfocal. MUSCULOSKELETAL: There is a dressing at the site of the right hip surgery. ASSESSMENT AND PLAN: * Rheumatoid arthritis for which she will be resumed on prednisone and Plaquenil. * Neuropathy for which she will continue on Lyrica. * Status post right hip surgery for osteoarthritis. The patient will be arranged for home physical therapy and a walker. * Advance care planning, the patient is a full code-Time spent was 18 minutes. MD LATOYA Nicolas/KRYSTA/DIMITRY TID: [id number] RECEIPT: [id number] MTDD
[2024-11-01] MEDS ORDERED: hydrOXYchloroQUINE SULFATE 200 MG TAB PO SCH (22:00)
[2024-11-02] MEDS ORDERED: predniSONE 5 MG TAB PO SCH (10:00)
== END 2024-11-01 17:55 | disposition home health service (06) | DRG 470 ==
LOC: SUR 09:56 → OVERFLOW 11:32 → CENTRAL 17:04
PROVIDERS: ADMIT Internal Medicine; ATTEND Internal Medicine
PROC: 0SR90JZ Replacement of Right Hip Joint with Synthetic Substitute, Open Approach (ICD-10-PCS; principal; 2024-10-30 12:34)
DX: M16.11 Unilateral primary osteoarthritis, right hip (principal); F32.A Depression, unspecified; G89.29 Other chronic pain; G62.9 Polyneuropathy, unspecified; M06.9 Rheumatoid arthritis, unspecified; Z88.2 Allergy status to sulfonamides; Z88.1 Allergy status to other antibiotic agents; Z82.0 Family history of epilepsy and other diseases of the nervous system; Z79.2 Long term (current) use of antibiotics; Z79.82 Long term (current) use of aspirin
CPT/HCPCS: 36415; 72170; 80053; 81001; 85014; 85018; 85025; 85610; 85730; 86850; 86900; 86901; 93005; 97110; 97116; 97163; 97530; G0378; J0131; J1100; J1885; J2405; J2470; J2704; J3490

== ENCOUNTER → 2025-01-10 | Day surgery (SDC) | payer MEDICARE, MEDICAID ==
[2025-01-08 09:46] LABS: Urine Protein, UAD Negative (Negative)
[2025-01-08 09:54] LABS: Hematocrit 39.2 % (36.0-46.0); Hemoglobin 13.2 g/dL (12.2-16.2); Mean Corpuscular Hemoglobin 30.5 pg (28.0-32.0); Mean Corpuscular Volume 90.7 fL (80.0-100.0); Nucleated Red Blood Cells % 0.0 %
[2025-01-08 10:08] LABS: Alanine Aminotransferase 16 U/L (7-40); Albumin 4.5 g/dL (3.2-4.8); Alkaline Phosphatase 110 U/L (46-116); Anion Gap 8 (5-15); BUN/Creatinine Ratio 11.4 (10.0-20.0); Bilirubin, Total 0.4 mg/dL (0.2-1.0); Blood Urea Nitrogen 10 mg/dL (9-23); Calcium 9.2 mg/dL (8.7-10.4); Carbon Dioxide 31 mmol/L (20-31); Chloride 103 mmol/L (98-107); Glucose 81 mg/dL (74-106); Potassium 4.6 mmol/L (3.5-5.1); Sodium 142 mmol/L (136-145); Total Protein 6.9 g/dL (5.7-8.2)
[2025-01-08 11:32] LABS: INR 0.99 (0.9-1.15); Partial Thromboplastin Time 29.6 SEC (24.5-34.5); Prothrombin Time 10.5 sec (9.3-11.8)
[~2025-01-10] VITALS: Ht 172.7 cm; Wt 86.2 kg
[~2025-01-10] MED LIST changes: +ACE3T PO; +ACETAMINOPHEN IV 100 ML IV ONE; +GELATIN 1 SPONGE SIZE 100 TOP ONE; +GLYCOPYRROLATE 0.2 MG/ML 1ML VIAL ONE; -HYDR-4902 PO; +HYDROCORTISONE SOD SUCC 100 MG/2ML INJ VIAL ONE; +HYDROmorphone HCL 2 MG/ML VL/or syr IV PRN; +KETAMINE 50mg/ML 10ml Vial 10 ML ONE; +KETOROLAC TROMETH 30 MG/ML 1ML VIAL ONE; +LIDOCAINE 2% JELLY 11ml (GLYDO) ONE; +MIDAZOLAM HCL 2MG/2ML 2ml VIAL (1mg/ml) ONE; +ONDANSETRON HCL 4 MG/2 ML VIAL IV PRN; +ONDANSETRON HCL 4 MG/2 ML VIAL ONE; +PROPOFOL 10 MG/ML 20 ML IV ONE; +fentaNYL CITRATE 100 MCG/2 ML VL ONE
[2025-01-10] MEDS: ceFAZolin 2 GM/D5W50ml 0 ML IV ONE (10:28)
[2025-01-10] MEDS: BUPIVACAINE W/ EPINEPH 0.5% INJ 50ML MDV IJ ONE (10:49)
[2025-01-10] MEDS: LIDOCAINE W/ EPINEPHRINE 1% 20ML VIAL ONE (10:49)
[2025-01-10 11:08] VITALS: TEMP 97.3; O2SAT 97
[2025-01-10] MEDS: ACETAMINOPHEN IV 1000 MG/100ML (10MG/ML) IV ONE (11:20)
--- NOTE | 2025-01-10 11:31 | DVHOP ---
DATE OF SURGERY: 01/10/2025 PREOPERATIVE DIAGNOSIS: Bleeding hemorrhoids. POSTOPERATIVE DIAGNOSIS: Bleeding hemorrhoids. SURGEON: Benji Piper MD POLICE OFFICER: Cm Corrales NP ANESTHESIA: Local with IV sedation. ANESTHESIOLOGIST: Dr. Magallanes PROCEDURES: * Anoscopy. * Internal and external hemorrhoidectomy. DESCRIPTION OF PROCEDURE: Under adequate anesthesia with the patient prone positioned in the Jackknife position on the operating room table, the anal and perianal skin and buttocks were prepped and draped. The patient has a very poor anal sphincter tone and no dilatation was necessary in order to perform digital examination, had anoscopic examination with a bivalve speculum. The anal sphincter tone decrease could be due to previous back surgeries or other factors. And for this reason, I limited the excision of her hemorrhoids so as to prevent any injury to the sphincter. With a bivalve speculum inside the anus, numerous internal hemorrhoids were ligated with a rubber band ligator. Following injection of local anesthetic, the patient's external hemorrhoids were excised utilizing a Bovie clamp and under sewing the Bovie clamp with 2-0 chromic horizontal mattress suture. Two large groups of hemorrhoids were excised and as indicated above, this was the extend of the operation due to the poor anal sphincter tone. Subsequently, following assurance of adequate hemostasis, the anus was packed with a Gelfoam pad saturated with 2% Xylocaine gel. The patient remained stable throughout the procedure and left the operating room following an accurate needle and sponge counts. Her , Bradley, was thoroughly informed at [phone]. Benji Piper MD PF/EKT TID: [id number] RECEIPT: [id number]
[2025-01-10 12:13] VITALS: BP 108/63; PULSE 68; RESP 11; O2SAT 99
== END | disposition home or self-care (01) ==
LOC: SUR 08:21
PROVIDERS: ATTEND Surgery
DX: K64.8 Other hemorrhoids (principal); K21.9 Gastro-esophageal reflux disease without esophagitis; K74.69 Other cirrhosis of liver; J45.909 Unspecified asthma, uncomplicated; M06.9 Rheumatoid arthritis, unspecified; F41.9 Anxiety disorder, unspecified; Z86.19 Personal history of other infectious and parasitic diseases; Z88.1 Allergy status to other antibiotic agents; Z88.2 Allergy status to sulfonamides
CPT/HCPCS: 36415; 46250; 80053; 81001; 85025; 85610; 85730; 88305; J1720; J1885; J1956; J2250; J2405; J2704; J3010; J0131